=== PATIENT | female | born 1995 | race Caucasian/White ===

== ENCOUNTER 2017-11-02 00:35 | Emergency (ER) | payer MEDICAID, OTHER ==
[~2017-11-02] VITALS: Ht 149.9 cm; Wt 45.4 kg
[2017-11-02 00:43] VITALS: BP 105/65
--- NOTE | 2017-11-02 00:50 | NUR ---
PATIENT TO ER BED 4
[2017-11-02] MEDS ORDERED: ALBU0.0912 INH (00:52)
--- NOTE | 2017-11-02 01:15 | NUR ---
XRAY AT BEDSIDE.
--- NOTE | 2017-11-02 01:15 | NUR ---
22Y/F C/O CONSTIPATION X4 DAYS. PT STATES SHE HAS BEEN UNABLE TO HAVE A BM FOR 4 DAYS. ABD IS FLAT, FIRM, TENDER, ACTIVE BS X4. PT STATES SHE HAS BEEN DRINKING "PRUNE JUICE AND WATER". PT LAYING IN BED, AA&OX4, ER MD AWARE OF PT STATUS. PMH ASTHMA ALLERGY AMOXICILLIN, PROMETHAZINE
[2017-11-02] MEDS ORDERED: MAGNESIUM CITRATE 300 ML BTL PO ONE (01:25)
[2017-11-02] MEDS ORDERED: SODIUM PHOSPHATE 118 ML ENEM RC ONE (01:25)
--- NOTE | 2017-11-02 01:35 | NUR ---
FLEET ENEMA ADMINSTERED PT ADVISED TO HOLD ENEMA LONG POSSIBLE. PT TOLERATED PROCEDURE WELL.
[2017-11-02 02:27] VITALS: BP 104/59
--- NOTE | 2017-11-02 02:28 | NUR ---
Patient discharged with v/s stable. Written and verbal after care instructions given and explained. Patient alert, oriented and verbalized understanding of instructions. Ambulatory with steady gait. All questions addressed prior to discharge. ID band removed. Patient advised to follow up with PMD. Rx of BENTYL, MAGNESIUM CITRATE given. Patient educated on indication of medication including possible reaction and side effects. Opportunity to ask questions provided and answered.
== END 2017-11-02 02:28 | disposition home or self-care (01) ==
LOC: MED 00:35
DX: K59.00 Constipation, unspecified (principal); R10.30 Lower abdominal pain, unspecified; Z88.0 Allergy status to penicillin; Z88.8 Allergy status to other drugs, medicaments and biological substances
CPT/HCPCS: 74018; 81025; 99283; Q0092

== ENCOUNTER 2018-10-13 17:52 | Emergency (ER) | payer OTHER ==
[~2018-10-13] VITALS: Ht 149.9 cm; Wt 44.2 kg
[~2018-10-13 17:52] MED LIST: ALBU0.0912 INH
[2018-10-13 17:55] VITALS: BP 111/58
--- NOTE | 2018-10-13 18:08 | NUR ---
WAIT IN [email or web address]
--- NOTE | 2018-10-13 18:13 | NUR ---
PT TO ER BED 4
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
--- NOTE | 2018-10-13 18:25 | NUR ---
RAD AT BEDSIDE
[2018-10-13] MEDS ORDERED: IBUPROFEN 600 MG TAB PO ONE (18:40)
[2018-10-13 19:00] VITALS: BP 125/73
== END 2018-10-13 19:00 | disposition home or self-care (01) ==
LOC: MED 17:52
DX: M79.644 Pain in right finger(s) (principal); J45.909 Unspecified asthma, uncomplicated; Z79.899 Other long term (current) drug therapy; Z88.1 Allergy status to other antibiotic agents; Z88.8 Allergy status to other drugs, medicaments and biological substances
CPT/HCPCS: 29130; 73130; 99283; Q0092